=== PATIENT | female | born 1965 | race African-American/Black ===

== ENCOUNTER 2019-12-20 14:39 | Observation (INO) | payer OTHER ==
[~2019-12-20] VITALS: Ht 157.5 cm; Wt 87.6 kg
[~2019-12-20 14:39] MED LIST: ASA81 MG; ASPIRIN81 MG PO; CARDIZEM CD180 MG PO; FOLIC ACID1 MG PO; GABAPENTIN300 MG PO; GLIMEPIRIDE2 MG PO; HYDROCODON-ACE1 EA11 PO; HYDROCODON-ACE1 EAC9 PO; IVIG; LEVEMIR100 UNIT/1 SQ; LEVEMIR100 UNIT/2 SQ; LORAZEPAM1 MG PO; PLAVIX75 MG PO; PRAVASTATIN SOD10 MG PO; RESTORIL15 MG PO; SOMA350 MG PO; TOBREX5 ML OP; Z.0.AMARYL2 MG PO; Z.0.CARISOPRODOL350 PO; Z.0.CARTIA XT300 MG PO; Z.0.LIDODERM700 MG; Z.0.NEURONTIN100 MG PO; ZETIA10 MG PO
[2019-12-20 17:10] LABS: BASOPHILS % 0.6 % (0.0-1.0); EOSINOPHILS # (AUTO) 0.3 (0.0-0.4); EOSINOPHILS % 5.6 % (0.0-6.0); HEMATOCRIT 35.6 % (34.2-44.1); LYMPHOCYTES % 20.3 % (18.0-39.1); MEAN CORPUSCULAR HEMOGLOBIN 33.7 pg (28-32); MEAN CORPUSCULAR HGB CONC 33.7 g/dL (31-35); MONOCYTES # (AUTO) 0.4 (0.2-0.8); MONOCYTES % 7.6 % (4.4-11.3); NEUTROPHILS # (AUTO) 3.3 (2.1-6.9); NEUTROPHILS % 65.7 % (38.7-80.0); PLATELET COUNT 266 x10e3/uL (140-360); RED BLOOD COUNT 3.56 x10e6/uL (3.6-5.1); RED CELL DISTRIBUTION WIDTH 13.5 % (11.7-14.4)
[2019-12-20 17:16] LABS: COLOR,URINE YELLOW (YELLOW)
[2019-12-20 17:17] LABS: CLARITY,URINE SL CLOUDY (CLEAR); KETONES,URINE NEGATIVE (NEGATIVE); LEUKOCYTE ESTERASE ,URINE NEGATIVE (NEGATIVE); NITRITE,URINE NEGATIVE (NEGATIVE); PROTEIN,URINE DIPSTICK NEGATIVE (NEGATIVE); URINE UROBILINOGEN 0.2 mg/dL (0.2 - 1)
[2019-12-20 17:25] LABS: BACTERIA,URINE MODERATE /HPF; EPITHELIAL CELLS,URINE MANY /LPF; WBC,URINE (MAN) 0-5 /HPF (0-5)
[2019-12-20 18:10] LABS: PROTHROMBIN TIME 13.7 seconds (11.9-14.5)
[2019-12-20 18:15] LABS: PARTIAL THROMBOPLASTIN TIME 22.8 seconds (23.8-35.5)
[2019-12-20 18:21] LABS: ALANINE AMINOTRANSFERASE 70 IU/L (0-55); ALBUMIN 4.4 g/dL (3.5-5.0); ALKALINE PHOSPHATASE 284 IU/L (40-150); ANION GAP 15.6 mmol/L (8-16); BLOOD UREA NITROGEN 8 mg/dL (7-26); BUN/CREATININE RATIO 14 (6-25); CALCIUM 10.3 mg/dL (8.4-10.2); CARBON DIOXIDE 24 mmol/L (22-29); CHLORIDE 106 mmol/L (98-107); CREATINE KINASE 232 IU/L (29-168); CREATININE, SERUM 0.56 mg/dL (0.57-1.11); EST GLOMERULAR FILTRATION RATE > 60 ML/MIN (60-); GLUCOSE 101 mg/dL (74-118); MAGNESIUM 1.9 MG/DL (1.3-2.1); POTASSIUM 3.6 mmol/L (3.5-5.1); SODIUM 142 mmol/L (136-145)
[2019-12-20] MEDS ORDERED: MORPHINE SULFATE INJ 2 MG/ML SYR IV PRN (19:15)
[2019-12-20] MEDS ORDERED: ONDANSETRON HCL INJ 2MG/ML 2ML 2 MG/ML VIAL IV PRN (19:15)
[2019-12-20 21:30] VITALS: BP 144/92
[2019-12-20] MEDS ORDERED: HUMALOG100 UNIT/1 SQ (22:29)
[2019-12-20] MEDS ORDERED: HUMALOG100 UNIT/3 SQ (22:29)
[2019-12-20] MEDS ORDERED: DOCUSATE SODIU100 MG PO (22:29)
[2019-12-20] MEDS ORDERED: PIOGLITAZONE HC45 MG PO (22:29)
[2019-12-20] MEDS ORDERED: LISINOPRIL10 MG PO (22:29)
[2019-12-20] MEDS ORDERED: TYLENOL EXTRA500 MG PO (22:29)
[2019-12-20] MEDS ORDERED: LIPITOR20 MG PO (22:29)
[2019-12-21] VITALS (8 sets, daily range): BP systolic 128–151; BP diastolic 80–97
[2019-12-21 05:32] LABS: BASOPHILS % 0.7 % (0.0-1.0); EOSINOPHILS # (AUTO) 0.3 (0.0-0.4); EOSINOPHILS % 6.2 % (0.0-6.0); HEMATOCRIT 31.3 % (34.2-44.1); HEMOGLOBIN 10.3 g/dL (12.0-16.0); LYMPHOCYTES # (AUTO) 1.1 (1.0-3.2); LYMPHOCYTES % 28.4 % (18.0-39.1); MEAN CORPUSCULAR HEMOGLOBIN 33.2 pg (28-32); MEAN CORPUSCULAR HGB CONC 32.9 g/dL (31-35); MONOCYTES # (AUTO) 0.3 (0.2-0.8); MONOCYTES % 8.5 % (4.4-11.3); NEUTROPHILS # (AUTO) 2.2 (2.1-6.9); PLATELET COUNT 201 x10e3/uL (140-360); RED CELL DISTRIBUTION WIDTH 13.7 % (11.7-14.4)
[2019-12-21 05:58] LABS: ALANINE AMINOTRANSFERASE 51 IU/L (0-55); ALBUMIN 3.2 g/dL (3.5-5.0); ALKALINE PHOSPHATASE 202 IU/L (40-150); ANION GAP 12.4 mmol/L (8-16); BLOOD UREA NITROGEN 10 mg/dL (7-26); BUN/CREATININE RATIO 20 (6-25); CALCIUM 9.1 mg/dL (8.4-10.2); CARBON DIOXIDE 26 mmol/L (22-29); CHLORIDE 108 mmol/L (98-107); CREATININE, SERUM 0.49 mg/dL (0.57-1.11); EST GLOMERULAR FILTRATION RATE > 60 ML/MIN (60-); GLUCOSE 125 mg/dL (74-118); POTASSIUM 3.4 mmol/L (3.5-5.1); SODIUM 143 mmol/L (136-145)
[2019-12-21 11:22] LABS: CREATINE KINASE MB 2.4 ng/mL (0-5.0)
[2019-12-21] MEDS ORDERED: DEXTROSE 50% SYRINGE 50 ML IV PRN (15:45)
[2019-12-21] MEDS ORDERED: CEFEPIME HCL 1 GM VIAL IV SCH (16:00)
[2019-12-21] MEDS: INSULIN REGULAR, HUMAN 100 UNIT/1 ML 3ML VIAL SQ SCH ×2 (16:30→21:03)
[2019-12-21] MEDS: INSULIN LISPRO 100 UNIT/1 ML 3ML VIAL SQ SCH (17:00)
[2019-12-21] MEDS ORDERED: INSULIN LISPRO 3 UNIT SQ SCH (17:00)
[2019-12-21] MEDS: DOCUSATE SODIUM 100 MG CAP PO SCH (18:12)
[2019-12-21] MEDS ORDERED: SODIUM CHLORIDE 0.9% 250ML 250 ML ONE (18:13)
[2019-12-21] MEDS: CEFEPIME 1GM/NS 0.9% 50 ML 50 ML IV SCH (18:15)
[2019-12-21] MEDS: ATORVASTATIN 40 MG TAB PO SCH (20:55)
[2019-12-21] MEDS ORDERED: ATORVASTATIN 20 MG TAB PO SCH (21:00)
[2019-12-22] VITALS (8 sets, daily range): BP systolic 123–145; BP diastolic 67–86
[2019-12-22] MEDS: CEFEPIME 1GM/NS 0.9% 50 ML 50 ML IV SCH ×2 (04:56→16:48)
[2019-12-22] MEDS: INSULIN REGULAR, HUMAN 100 UNIT/1 ML 3ML VIAL SQ SCH ×4 (07:30→22:00)
[2019-12-22] MEDS: DOCUSATE SODIUM 100 MG CAP PO SCH ×2 (08:33→16:48)
[2019-12-22] MEDS: LISINOPRIL 10 MG TAB PO SCH (08:34)
[2019-12-22] MEDS: ACETAMINOPHEN 325 MG TAB PO SCH ×2 (08:35→12:00)
[2019-12-22] MEDS: FOLIC ACID 1 MG TAB PO SCH (08:35)
[2019-12-22] MEDS: PIOGLITAZONE HCL 15 MG TAB PO SCH (08:35)
[2019-12-22] MEDS: CLOPIDOGREL BISULFATE 75 MG TAB PO SCH (08:35)
[2019-12-22] MEDS ORDERED: PIOGLITAZONE HCL 45 MG TAB PO SCH (09:00)
[2019-12-22] MEDS: INSULIN LISPRO 100 UNIT/1 ML 3ML VIAL SQ SCH ×3 (09:30→16:55)
[2019-12-22] MEDS: BALSAM PERU/CASTOR OIL 60 GM OINT...G. TP SCH (10:00)
[2019-12-22] MEDS: ATORVASTATIN 40 MG TAB PO SCH (21:59)
[2019-12-23] VITALS: BP 128/64
[2019-12-23 04:00] VITALS: BP 116/56
[2019-12-23] MEDS: CEFEPIME 1GM/NS 0.9% 50 ML 50 ML IV SCH ×2 (04:57→16:33)
[2019-12-23] MEDS: INSULIN REGULAR, HUMAN 100 UNIT/1 ML 3ML VIAL SQ SCH ×3 (07:30→16:30)
[2019-12-23] MEDS: ACETAMINOPHEN 325 MG TAB PO SCH ×2 (08:12→11:56)
[2019-12-23] MEDS: BALSAM PERU/CASTOR OIL 60 GM OINT...G. TP SCH (08:13)
[2019-12-23] MEDS: PIOGLITAZONE HCL 15 MG TAB PO SCH (08:14)
[2019-12-23] MEDS: INSULIN LISPRO 100 UNIT/1 ML 3ML VIAL SQ SCH ×3 (08:14→16:56)
[2019-12-23] MEDS: DOCUSATE SODIUM 100 MG CAP PO SCH ×2 (08:14→16:33)
[2019-12-23] MEDS: FOLIC ACID 1 MG TAB PO SCH (08:14)
[2019-12-23] MEDS: CLOPIDOGREL BISULFATE 75 MG TAB PO SCH (08:14)
[2019-12-23] MEDS: LISINOPRIL 10 MG TAB PO SCH (08:15)
[2019-12-23 08:20] VITALS: BP 122/67
[2019-12-23 09:00] VITALS: BP 122/67
[2019-12-23 11:39] VITALS: BP 153/83
[2019-12-23] MEDS ORDERED: ONDANSETRON HCL 4 MG ORAL DISINTEGRATING TAB PO PRN (13:30)
[2019-12-23 16:24] VITALS: BP 147/68
== END 2019-12-23 18:54 ==
LOC: ER 14:49 → ERHOLD 21:03 → INTOOBSV 21:03 → MED/SURG 21:30
DX: N39.0 Urinary tract infection, site not specified (principal); M33.90 Dermatopolymyositis, unspecified, organ involvement unspecified; R62.7 Adult failure to thrive; I69.351 Hemiplegia and hemiparesis following cerebral infarction affecting right dominant side; I10 Essential (primary) hypertension; E11.9 Type 2 diabetes mellitus without complications; E78.5 Hyperlipidemia, unspecified; I69.320 Aphasia following cerebral infarction; Z68.35 Body mass index [BMI] 35.0-35.9, adult; B96.20 Unspecified Escherichia coli [E. coli] as the cause of diseases classified elsewhere; Z79.4 Long term (current) use of insulin
CPT/HCPCS: 36415; 71045; 80053; 81001; 82550; 82553; 83735; 84484; 85025; 85610; 85730; 87086; 87186; 93005; 96372; 97139; 99251; 99284; G0378; J0692; J7050; U0002

== ENCOUNTER 2021-09-25 17:39 | Emergency (ER) | payer OTHER ==
[~2021-09-25] VITALS: Ht 157.5 cm; Wt 100.7 kg
[~2021-09-25 17:39] MED LIST changes: +DOCUSATE SODIU100 MG PO; +HUMALOG100 UNIT/1 SQ; +HUMALOG100 UNIT/3 SQ; +LIPITOR20 MG PO; +LISINOPRIL10 MG PO; +PIOGLITAZONE HC45 MG PO; +TYLENOL EXTRA500 MG PO
[2021-09-25] MEDS ORDERED: ONDANSETRON HCL INJ 2MG/ML 2ML 2 MG/ML VIAL IV STA (18:02)
[2021-09-25 18:39] LABS: BASOPHILS % 0.3 % (0.0-1.0); EOSINOPHILS % 1.1 % (0.0-6.0); HEMATOCRIT 40.1 % (34.2-44.1); HEMOGLOBIN 13.3 g/dL (12.0-16.0); LYMPHOCYTES # (AUTO) 1.2 (1.0-3.2); LYMPHOCYTES % 30.8 % (18.0-39.1); MEAN CORPUSCULAR HEMOGLOBIN 33.5 pg (28-32); MEAN CORPUSCULAR HGB CONC 33.2 g/dL (31-35); MONOCYTES # (AUTO) 0.2 (0.2-0.8); NEUTROPHILS # (AUTO) 2.4 (2.1-6.9); NEUTROPHILS % 63.5 % (38.7-80.0); PLATELET COUNT 100 x10e3/uL (140-360); RED BLOOD COUNT 3.97 x10e6/uL (3.6-5.1); RED CELL DISTRIBUTION WIDTH 12.3 % (11.7-14.4)
[2021-09-25 18:43] LABS: CLARITY,URINE CLEAR (CLEAR); COLOR,URINE YELLOW (YELLOW)
[2021-09-25 18:44] LABS: KETONES,URINE NEGATIVE (NEGATIVE); LEUKOCYTE ESTERASE ,URINE NEGATIVE (NEGATIVE); NITRITE,URINE NEGATIVE (NEGATIVE); PROTEIN,URINE DIPSTICK NEGATIVE (NEGATIVE); URINE UROBILINOGEN 0.2 mg/dL (0.2 - 1)
[2021-09-25 18:57] LABS: ALANINE AMINOTRANSFERASE 31 IU/L (0-55); ALBUMIN 3.7 g/dL (3.5-5.0); ALBUMIN/GLOBULIN RATIO 0.9 (0.8-2.0); ALKALINE PHOSPHATASE 153 IU/L (40-150); ANION GAP 17.3 mmol/L (8-16); BLOOD UREA NITROGEN 15 mg/dL (7-26); BUN/CREATININE RATIO 24 (6-25); CALCIUM 9.2 mg/dL (8.4-10.2); CARBON DIOXIDE 20 mmol/L (22-29); CHLORIDE 105 mmol/L (98-107); CREATINE KINASE 296 IU/L (29-168); CREATININE, SERUM 0.63 mg/dL (0.57-1.11); GLUCOSE 108 mg/dL (74-118); POTASSIUM 4.3 mmol/L (3.5-5.1); SODIUM 138 mmol/L (136-145)
[2021-09-25 19:04] LABS: BACTERIA,URINE MODERATE /HPF; EPITHELIAL CELLS,URINE MODERATE /LPF; MUCUS,URINE MANY (RARE)
[2021-09-25 19:17] LABS: CALCIUM CARBONATE CRYSTALS,UR FEW; CALCIUM OXALATE CRYSTALS,UR MANY (FEW)
[2021-09-25] MEDS ORDERED: CEFTRIAXONE 1 GM VIAL IM ONE (19:45)
[2021-09-25] MEDS ORDERED: LIDOCAINE HCL 1% LOCAL INJ 20 ML VIAL ONE (20:08)
[2021-09-25 20:30] VITALS: BP 135/81
== END 2021-09-25 20:24 ==
LOC: ER 17:54
DX: R11.2 Nausea with vomiting, unspecified (principal); N39.0 Urinary tract infection, site not specified; R10.9 Unspecified abdominal pain; I10 Essential (primary) hypertension; E11.9 Type 2 diabetes mellitus without complications; E78.5 Hyperlipidemia, unspecified; Z86.73 Personal history of transient ischemic attack (TIA), and cerebral infarction without residual deficits
CPT/HCPCS: 36415; 74176; 80053; 81001; 82550; 82553; 83690; 84484; 85025; 99284; J0696; J2001